=== PATIENT | female | born 1965 | race Caucasian/White ===

== ENCOUNTER 2018-07-25 01:04 | Emergency (ER) | payer BC ==
[2018-07-25] MEDS ORDERED: CEPHALEXIN 500 MG CAPSULE PO ONE (01:53)
--- NOTE | 2018-07-25 02:00 | ER Document Report ---
ED General - General Chief Complaint: Arm Problem Stated Complaint: RASH Time Seen by Provider: 07/25/18 01:37 Notes: Patient is a 53-year-old female with a past medical history of bilateral mastectomy from breast cancer with some degree of residual lymphadenopathy of the left upper extremity at baseline who presents with 24 hours of progressively worsening erythema of her proximal left upper extremity. She describes the area as being a continuous, dull, throbbing pain. States touching the area worsens the pain. States that the redness has been spreading particular over the last 3-4 hours. This prompted her to come to the emergency department to seek treatment. She has not had any fever or constitutional symptoms at home. She is visiting from out of town and therefore has been unable to contact her primary care doctor regarding today's concerns. States this feels similar to when she has had cellulitis in the past. She states she was also concerned with the possibility of an allergic component as she had some itching across her chest but denies any shortness of breath, nausea, vomiting, throat tightness, abdominal cramping, or syncope. She has not tried any to improve her symptoms. - Related Data Allergies/Adverse Reactions: piperacillin [From Zosyn] Allergy (Verified 07/25/18 01:11) tazobactam [From Zosyn] Allergy (Verified 07/25/18 01:11) Past Medical History - General Information source: Patient - Social History Smoking Status: Never Smoker Frequency of alcohol use: None Drug Abuse: None Lives with: Spouse/Significant other Family History: Reviewed & Not Pertinent Review of Systems - Review of Systems Notes: Constitutional: Negative for fever. HENT: Negative for sore throat. Eyes: Negative for visual changes. Cardiovascular: Negative for chest pain. Respiratory: Negative for shortness of breath. Gastrointestinal: Negative for abdominal pain, vomiting or diarrhea. Genitourinary: Negative for dysuria. Musculoskeletal: Negative for back pain. Skin: Positive for rash. Neurological: Negative for headaches, weakness or numbness. 10 point ROS negative except as marked above and in HPI. Physical Exam - Vital signs Vitals: Temp Pulse Resp BP Pulse Ox 98.7 F 89 17 133/78 H 99 07/25/18 01:18 07/25/18 01:18 07/25/18 01:18 07/25/18 01:18 07/25/18 01:18 Interpretation: Normal Notes: PHYSICAL EXAMINATION: GENERAL: Well-appearing, well-nourished and in no acute distress. HEAD: Atraumatic, normocephalic. EYES: Pupils equal round and reactive to light, extraocular movements intact, sclera anicteric, conjunctiva are normal. ENT: nares patent, oropharynx clear without exudates. Moist mucous membranes. NECK: Normal range of motion, supple without lymphadenopathy LUNGS: Breath sounds clear to auscultation bilaterally and equal. No wheezes rales or rhonchi. HEART: Regular rate and rhythm without murmurs ABDOMEN: Soft, nontender, normoactive bowel sounds. No guarding, no rebound. No masses appreciated. EXTREMITIES: Normal range of motion, no pitting or edema. No cyanosis. NEUROLOGICAL: No focal neurological deficits. Moves all extremities spontaneously and on command. PSYCH: Normal mood, normal affect. SKIN: Warm, Dry, normal turgor, there is a 6 x 5 cm of erythema on the proximal left upper extremity that is slightly raised and tender to palpation without any areas of fluctuance or induration Course - Re-evaluation Re-evalutation: 07/25/18 01:58 Patient presents with what appears to be a left upper extremity cellulitis but she is otherwise very well in appearance. Vitals within normal limits. No evidence of urticaria on exam. No dictation for labs or imaging. The patient has no evidence of joint involvement although the cellulitis does not spread to the elbow. No limited range of flexion or extension of the elbow. The patient has been started on cephalexin, the area of cellulitis has been demarcated. At this time will discharge with return precautions and follow-up recommendations. Verbal discharge instructions given a the bedside and opportunity for questions given. Medication warnings reviewed. Patient is in agreement with this plan and has verbalized understanding of return precautions and the need for primary care follow-up in the next 24-72 hours. - Vital Signs Vital signs: Temp Pulse Resp BP Pulse Ox 98.7 F 89 17 133/78 H 99 07/25/18 01:18 1218 01:18 12 01:18 07/25/18 01:18 07/25/18 01:18 Discharge - Discharge Clinical Impression: Cellulitis of left upper extremity Condition: Good Disposition: HOME, SELF-CARE Additional Instructions: The rash is likely due to infection of your skin. You need to take the antibiotics as prescribed. Do not stop even if the rash goes away until you have completed all the antibiotics. The area of redness was traced out here in the emergency department with a marking pen. You need to return to emergency department if the redness spreads outside of this area by more than 2 cm in any direction. You should also return if you develop fevers with temperature greater than 101, persistent vomiting, worsening pain, or have any other symptoms that are concerning to you. Prescriptions: Cephalexin Monohydrate [Keflex 500 mg Capsule] 500 mg PO Q6H 7 Days capsule
[2018-07-25 02:18] VITALS: BP 133/78
== END 2018-07-25 02:18 | disposition home or self-care (01) ==
LOC: ER 01:04
DX: L03.114 Cellulitis of left upper limb (principal); L29.9 Pruritus, unspecified; Z85.3 Personal history of malignant neoplasm of breast; Z90.13 Acquired absence of bilateral breasts and nipples; Z88.0 Allergy status to penicillin
CPT/HCPCS: 99282